=== PATIENT | male | born 1945 | race Caucasian/White ===

== ENCOUNTER 2017-12-15 09:34 | Day surgery (SDC) | payer OTHER ==
[~2017-12-15] VITALS: Ht 182.9 cm; Wt 78.7 kg
[~2017-12-15 09:34] MED LIST: ANTACID168 MG; FISH OIL + D31 EACH; GLUCOSAMINE1000 MG; Hair, Skin & N1 EACH; LEVSOD75
== END 2017-12-15 11:40 | disposition home or self-care (01) ==
LOC: ORSCSDS 09:34
PROVIDERS: Internal Medicine Gastroenterology
PROC: 0DBM8ZX Excision of Descending Colon, Via Natural or Artificial Opening Endoscopic, Diagnostic (ICD-10-PCS; principal; 2017-12-15 10:30)
PROC: 0DBP8ZX Excision of Rectum, Via Natural or Artificial Opening Endoscopic, Diagnostic (ICD-10-PCS; principal; 2017-12-15 10:30)
DX: Z12.11 Encounter for screening for malignant neoplasm of colon (principal); D12.4 Benign neoplasm of descending colon; K57.30 Diverticulosis of large intestine without perforation or abscess without bleeding; Z86.010 Personal history of colon polyps; K58.9 Irritable bowel syndrome, unspecified; Z79.899 Other long term (current) drug therapy
CPT/HCPCS: 88305; J1980; J7120

== ENCOUNTER → 2022-01-25 | Outpatient (CLI) | payer OTHER ==
[2022-01-26 13:31] LABS: Stool Occult Bld Immuno 1 Negative (NEGATIVE)
== END ==
LOC: LAB SHORT 10:30
PROVIDERS: Family Medicine
DX: Z12.11 Encounter for screening for malignant neoplasm of colon (principal)
CPT/HCPCS: 82274

== ENCOUNTER → 2024-04-05 | Outpatient (CLI) | payer OTHER ==
[2024-04-05 14:37] LABS: Stool Occult Bld Immuno 1 Negative (NEGATIVE)
== END | disposition home or self-care (01) ==
LOC: LAB SHORT 08:00 → LAB 08:00
PROVIDERS: Family Medicine
DX: R19.8 Other specified symptoms and signs involving the digestive system and abdomen (principal)
CPT/HCPCS: 82274

== ENCOUNTER → 2024-04-23 | Outpatient (CLI) | payer OTHER ==
[2024-04-23 10:41] LABS: BASOPHILS ABSOLUTE AUTO 0.01 K/mm3 (0.00-0.23); BASOPHILS PERCENT AUTO 0 % (0-2); EOSINOPHILS ABSOLUTE AUTO 0.05 K/mm3 (0.00-0.68); EOSINOPHILS PERCENT AUTO 1 % (0-6); Hematocrit 41.9 % (37.0-53.0); Hemoglobin 13.9 g/dL (13.5-17.5); IMMATURE GRAN ABSOLUTE AUTO 0.01 K/mm3 (0.00-0.10); IMMATURE GRAN PERCENT AUTO 0 % (0-1); LYMPHOCYTES ABSOLUTE AUTO 1.21 K/mm3 (0.84-5.20); LYMPHOCYTES PERCENT AUTO 20 % (21-46); MONOCYTES ABSOLUTE AUTO 0.35 K/mm3 (0.16-1.47); MONOCYTES PERCENT AUTO 6 % (4-13); Mean Corpuscular HGB Conc 33.2 g/dL (31.5-36.5); Mean Corpuscular Volume 87 fL (80-100); Mean Platelet Volume 9.2 fL (9.1-12.4); NEUTROPHILS ABSOLUTE AUTO 4.39 K/mm3 (1.96-9.15); NEUTROPHILS PERCENT AUTO 73 % (41-73); Platelet Count 265 K/mm3 (150-400); RDW Coefficient Variation 12.8 % (11.7-14.2); RDW Standard Deviation 40.6 fL (35.1-46.3); White Blood Cell Count 6.02 K/mm3 (4.00-11.30)
[2024-04-23 10:52] LABS: Albumin, Blood 2.9 g/dL (3.4-5.0); Albumin/Globulin Ratio 0.7 (0.8-1.8); Bilirubin, Total 0.4 mg/dL (0.1-1.0); Bun/Creatinine Ratio 12.6 (12.0-20.0); Calcium, Blood 8.5 mg/dL (8.5-10.1); Creatinine, Blood 1.51 mg/dL (0.60-1.20); Globulin, Blood 3.9 g/dL (2.2-4.0); Potassium, Blood 4.3 mmol/L (3.5-5.5); Total Protein, Blood 6.8 g/dL (6.4-8.2)
== END ==
LOC: LAB 10:35 → LAB SHORT 10:35
PROVIDERS: Physician Assistant
DX: R10.32 Left lower quadrant pain (principal)
CPT/HCPCS: 80053; 85025

== ENCOUNTER 2024-07-21 11:14 | Day surgery (SDC) | payer OTHER ==
[~2024-07-21] VITALS: Ht 182.9 cm; Wt 92.6 kg
[~2024-07-21 11:14] MED LIST changes: +EPINEPhrine HCl 1 MG / ML 30ML Vial ONE; +Lactated Ringer's 1,000 ML IV ONE; +Lidocaine 2%-Epineph 1:200000 20 ML SDV ONE
[2024-07-21] MEDS ORDERED: EPINEPhrine HCl 1 MG / ML 30ML Vial ONE (11:23)
[2024-07-21] MEDS ORDERED: Lactated Ringer's 1,000 ML IV ONE ×2 (11:48→13:20)
[2024-07-21] MEDS ORDERED: propofoL 20 ML IV ONE (12:08)
[2024-07-21] MEDS ORDERED: Rocuronium Bromide 10 MG/ML 5ML Injection IV ONE ×2 (12:08→12:47)
[2024-07-21] MEDS ORDERED: FentaNYL Citrate 50 MCG/ML 2 ML Injection ONE (12:09)
[2024-07-21] MEDS ORDERED: ePHEDrine Sulfate 50 MG/ML 1ML Injection ONE (12:35)
[2024-07-21] MEDS ORDERED: Dexamethasone Sod Phos 10 MG/ML 1ML VIAL ONE (12:48)
[2024-07-21] MEDS ORDERED: Metoclopramide HCl 5MG / ML 2ML Vial ONE (12:48)
[2024-07-21] MEDS ORDERED: Ondansetron HCl 2 MG / ML 2ML Vial ONE (12:48)
[2024-07-21] MEDS ORDERED: Sugammadex Sodium 200 MG/2ML SDV (100 MG/ML) ONE (13:36)
--- NOTE | 2024-07-21 13:49 | NUR ---
07/21/24 1349 Nga Brewer [facility] REF [id number] EXP: 12-02-31
[2024-07-21 14:06] VITALS: BP 144/86
[2024-07-21] MEDS ORDERED: OxyCODONE HCL 5 MG TAB ONE (14:29)
--- NOTE | 2024-07-21 14:55 | NUR ---
07/21/24 4909 Tomasz Mejia PT REPORTED 3/10 TOLERABLE NOSE/THROAT PAIN UPON D/C. HE EXPRESSED READINESS TO RETURN HOME, AND APPEARED ALERT/RELAXED. HE DENIED NAUSEA. DRESSING CHANGED AT 1447, SMALL AMOUNT RED DRAINAGE PRESENT.
[2024-07-27] MEDS ORDERED: Omeprazole20 M1 (09:44)
[2024-07-27] MEDS ORDERED: Prilosec10 M1 PO (09:45)
== END 2024-07-21 14:51 | disposition home or self-care (01) ==
LOC: ORSCSDS 11:14
PROVIDERS: Otolaryngology
PROC: 09BM0ZZ Excision of Nasal Septum, Open Approach (ICD-10-PCS; principal; 2024-07-21 12:30)
PROC: 09SL0ZZ Reposition Nasal Turbinate, Open Approach (ICD-10-PCS; principal; 2024-07-21 12:30)
DX: J34.2 Deviated nasal septum (principal); J34.3 Hypertrophy of nasal turbinates; E03.9 Hypothyroidism, unspecified; Z79.899 Other long term (current) drug therapy; N28.89 Other specified disorders of kidney and ureter; N28.1 Cyst of kidney, acquired
CPT/HCPCS: 74183; A9270; A9579; J0171; J1100; J2405; J2704; J2765; J3010; J7120

== ENCOUNTER 2024-08-05 11:47 | Day surgery (SDC) | payer OTHER ==
[~2024-08-05] VITALS: Ht 182.9 cm; Wt 90.6 kg
[~2024-08-05 11:47] MED LIST changes: -EPINEPhrine HCl 1 MG / ML 30ML Vial ONE; -Lidocaine 2%-Epineph 1:200000 20 ML SDV ONE; +Omeprazole20 M1; +Prilosec10 M1 PO
[2024-08-05] MEDS ORDERED: CETI5 (12:04)
[2024-08-05] MEDS ORDERED: HAIR, SKIN AND1 EAC3 (12:04)
[2024-08-05] MEDS ORDERED: Ampicillin Sod/Sulbactam Sod 3 GM ONE (12:23)
[2024-08-05] MEDS ORDERED: NS 100 ML IV ONE (12:24)
[2024-08-05] MEDS ORDERED: propofoL 20 ML IV ONE (12:42)
[2024-08-05] MEDS ORDERED: Rocuronium Bromide 10 MG/ML 5ML Injection IV ONE ×2 (12:43→13:41)
[2024-08-05] MEDS ORDERED: FentaNYL Citrate 50 MCG/ML 2 ML Injection ONE (12:43)
[2024-08-05] MEDS ORDERED: Lactated Ringer's 1,000 ML IV ONE (12:49)
--- NOTE | 2024-08-05 13:28 | NUR ---
08/05/24 1328 Jackelin Vela PT TO HAVE HEMORRHOIDECTOMY AFTER COLONOSCOPY. REPORT GIVEN TO WILDA MASSEY
[2024-08-05] MEDS ORDERED: Sugammadex Sodium 200 MG/2ML SDV (100 MG/ML) ONE (13:41)
[2024-08-05] MEDS ORDERED: Ketorolac Tromethamine 30mg Vial ONE (13:41)
[2024-08-05] MEDS ORDERED: Ropivacaine 0.5% HCl/Pf 5 MG/ML 20ML VIAL INJ ONE (13:41)
[2024-08-05] MEDS ORDERED: Dexamethasone Sod Phos 10 MG/ML 1ML VIAL ONE (13:41)
[2024-08-05] MEDS ORDERED: Ondansetron HCl 2 MG / ML 2ML Vial ONE (13:41)
--- NOTE | 2024-08-05 14:11 | NUR ---
08/05/24 1411 Maria Teresa Khan PT. VERBALIZES ACHY IN HIS RECTAL AREA. PT. ALSO C/O HIS THIGHS HURTING. PT. INSTRUCTED THAT HIS LEGS WERE UP IN STIRRUPS. PT. VERBALIZES ALL IS TOLERABLE. PT. GIVEN A WARM BLANKET.
[2024-08-05 15:14] VITALS: BP 157/80
== END 2024-08-05 15:00 | disposition home or self-care (01) ==
LOC: ORSCSDS 11:47
PROVIDERS: Surgery
PROC: 0DBM8ZX Excision of Descending Colon, Via Natural or Artificial Opening Endoscopic, Diagnostic (ICD-10-PCS; principal; 2024-08-05 13:00)
PROC: 0DBL8ZX Excision of Transverse Colon, Via Natural or Artificial Opening Endoscopic, Diagnostic (ICD-10-PCS; principal; 2024-08-05 13:00)
PROC: 3E0T3BZ Introduction of Anesthetic Agent into Peripheral Nerves and Plexi, Percutaneous Approach (ICD-10-PCS; principal; 2024-08-05 13:00)
PROC: 0DBK8ZX Excision of Ascending Colon, Via Natural or Artificial Opening Endoscopic, Diagnostic (ICD-10-PCS; principal; 2024-08-05 13:00)
DX: K92.1 Melena (principal); K62.3 Rectal prolapse; K64.1 Second degree hemorrhoids; D12.4 Benign neoplasm of descending colon; K57.30 Diverticulosis of large intestine without perforation or abscess without bleeding; K21.9 Gastro-esophageal reflux disease without esophagitis; E03.9 Hypothyroidism, unspecified; N40.0 Benign prostatic hyperplasia without lower urinary tract symptoms; Z79.899 Other long term (current) drug therapy
CPT/HCPCS: 88305; J0295; J1100; J1885; J2405; J2704; J2795; J3010; J7120

== ENCOUNTER 2024-10-19 10:16 | Day surgery (SDC) | payer OTHER ==
[~2024-10-19] VITALS: Ht 182.9 cm; Wt 91.8 kg
[~2024-10-19 10:16] MED LIST changes: +CETI5; +HAIR, SKIN AND1 EAC3; +propofoL 50 ML IV ONE
[2024-10-19] MEDS ORDERED: Flonase 0.05% N16 GM (10:46)
[2024-10-19] MEDS ORDERED: Lactated Ringer's 1,000 ML IV ONE (11:35)
[2024-10-19 12:51] VITALS: BP 125/77
== END 2024-10-19 12:50 | disposition home or self-care (01) ==
LOC: ORSCSDS 10:16
PROVIDERS: Surgery
PROC: 0DB58ZX Excision of Esophagus, Via Natural or Artificial Opening Endoscopic, Diagnostic (ICD-10-PCS; principal; 2024-10-19 12:15)
PROC: 0DB98ZX Excision of Duodenum, Via Natural or Artificial Opening Endoscopic, Diagnostic (ICD-10-PCS; principal; 2024-10-19 12:15)
PROC: 0DB78ZX Excision of Stomach, Pylorus, Via Natural or Artificial Opening Endoscopic, Diagnostic (ICD-10-PCS; principal; 2024-10-19 12:15)
PROC: 0DB48ZX Excision of Esophagogastric Junction, Via Natural or Artificial Opening Endoscopic, Diagnostic (ICD-10-PCS; principal; 2024-10-19 12:15)
DX: R13.10 Dysphagia, unspecified (principal); K21.9 Gastro-esophageal reflux disease without esophagitis; K29.50 Unspecified chronic gastritis without bleeding; K44.9 Diaphragmatic hernia without obstruction or gangrene; E03.9 Hypothyroidism, unspecified; Z79.899 Other long term (current) drug therapy
CPT/HCPCS: 88305; 88341; 88342; J2704; J7120

== ENCOUNTER 2025-04-26 07:07 | Day surgery (SDC) | payer OTHER ==
[2025-04-26] VITALS (12 sets, daily range): BP systolic 138–184; BP diastolic 76–126
[~2025-04-26 07:07] MED LIST changes: +Flonase 0.05% N16 GM; -Lactated Ringer's 1,000 ML IV ONE; +NS 2,000 ML IV ONE; -propofoL 50 ML IV ONE
[2025-04-26] MEDS ORDERED: Naloxone HCl 0.4MG / ML 1ML Vial ONE (07:08)
[2025-04-26] MEDS ORDERED: Flumazenil 0.1 MG / ML 5ML Vial ONE (07:09)
[2025-04-26] MEDS ORDERED: Midazolam HCl 1MG / ML 2ML Vial ONE (07:09)
[2025-04-26] MEDS ORDERED: FentaNYL Citrate 50 MCG/ML 2 ML Injection ONE (07:09)
[2025-04-26] MEDS ORDERED: NS 0 ML IV ONE (07:10)
[2025-04-26] MEDS ORDERED: Phenylephrine HCl 100 MCG/ML-NS 10MLSYR (1MG/10ML) ONE (07:10)
--- NOTE | 2025-04-26 12:54 | NUR ---
PATIENT BACK FROM PROCEDURE AT 0908. PATIENT TOLERATED PROCEDURE WELL. PATIENT DENIES COMPLAINTS EXCEPT MILD TENDERNESS AT PROCEDURE SITE. DRSG TO LEFT LOWER BACK C/D/I. FIRST INITAIAL BP'S READING MUCH HIGHER THAN ADMIT BP. MANUAL TAKEN AT 0957: 138/92. DR SUAZO AT BEDSIDE TO SEE PATIENT AROUND 1000, AND SPOKE WITH PATIENT AND PATIENT'S . PT ON BEDREST FOR FIRST TWO HOURS OF RECOVERY. PT ABLE TO EAT, DRINK, AND VOID W/O ISSUES. BP TAKEN AFTER PATIENT DRESSED AND AT BASELINE. PT DENIES COMPLAINTS SUCH PAIN OR DIZZINESS JUST PRIOR TO DISCHARGE. VERBAL AND WRITTEN DICHARGE INSTRUCTIONS GIVEN TO PATIENT AND PT'S WITH CLEAR UNDERSTANDING. PATIENT DC'D HOME IN STABLE CONDITION AT 1152. PT TAKEN OUT BY ESCORT VIA WHEELCHAIR.
== END 2025-04-26 13:27 | disposition home or self-care (01) ==
LOC: MHTC 07:07
DX: C64.2 Malignant neoplasm of left kidney, except renal pelvis (principal); I25.10 Atherosclerotic heart disease of native coronary artery without angina pectoris; E03.9 Hypothyroidism, unspecified; Z79.899 Other long term (current) drug therapy; Z79.890 Hormone replacement therapy
CPT/HCPCS: 50593; 77013; 99152; 99153; C2618; J2250; J2310; J2371; J3010; J7030; Q9967

== ENCOUNTER 2025-07-13 07:03 | Day surgery (SDC) | payer OTHER ==
[~2025-07-13] VITALS: Ht 182.9 cm; Wt 93.8 kg
[~2025-07-13 07:03] MED LIST changes: +Balanced Salt Epinephrine Irrigation Solution 500 mL IR SCH; +Moxifloxacin HCL 0.5 MG/0.1 ML 0.4MLSYR LEFTEYE SCH; -NS 2,000 ML IV ONE; +Ondansetron 4 MG SoluTab MM PRN; +PHENYLEPHRINE\\TROPICAMIDE\\TETRACAINE OPHTHALMIC DILATING SOLN LEFTEYE PRN; +Povidone-Iodine 450 DROP/30 ML Solution LEFTEYE SCH; +Povidone-Iodine 450 DROP/30 ML Solution ONE; +Tetracaine HCl/Pf 0.5% Opth Soln 4 ml ONE
[2025-07-13] MEDS ORDERED: TRAZ50 PO (07:39)
[2025-07-13] MEDS ORDERED: TADALAFIL20 M1 PO (07:40)
[2025-07-13] MEDS ORDERED: OMEPRAZOLE 20MG CAP (07:40)
--- NOTE | 2025-07-13 07:49 | NUR ---
07/13/25 0749 Rachna Montesinos TETRACAINE EYE DROP PLACED AT 0740, PLEDGET PLACED AT 0741; PT TOLERATED PLACEMENT WELL. PT RATES ANXIETY UPON ARRIVAL 12/27, 10MG VALIUM ADMINISTERED PER 'S ORDERS. PT ON PULSE OX, O2 SATS ARE 96% ON ROOM AIR. CALL LIGHT IN REACH, AT BEDSIDE.
--- NOTE | 2025-07-13 08:18 | NUR ---
07/13/25 0818 Stephanie Luna HR:60 RR:14 BP:152/83 SPO2:97% ON 10L BLOW BY O2
[2025-07-13 08:32] VITALS: BP 147/76
--- NOTE | 2025-07-13 08:33 | NUR ---
07/13/[address] AT BEDSIDE
== END 2025-07-13 08:50 | disposition home or self-care (01) ==
LOC: ORSCSDS 07:03
PROVIDERS: Student in an Organized Health Care Education/Training Program
PROC: 08RK3JZ Replacement of Left Lens with Synthetic Substitute, Percutaneous Approach (ICD-10-PCS; principal; 2025-07-13 08:30)
DX: H25.812 Combined forms of age-related cataract, left eye (principal); Z96.1 Presence of intraocular lens; N40.0 Benign prostatic hyperplasia without lower urinary tract symptoms; E03.9 Hypothyroidism, unspecified; Z79.899 Other long term (current) drug therapy
CPT/HCPCS: A9270; V2632